=== PATIENT | male | born 1955 | race Caucasian/White ===

== ENCOUNTER → 2018-01-13 13:03 | Outpatient (CLI) | payer OTHER, SELFPAY ==
[2018-01-13 13:41] LABS: Add Manual Diff / Slide Review NO; Basophils Percent Auto 0.5 % (0-2); Hematocrit 40.9 % (41-53); Hemoglobin 14.3 g/dL (13.5-17.5); Lymphocytes Percent Auto 33.2 % (25-40); Mean Corpuscular Hemoglobin 30.2 PG (26-34); Mean Corpuscular Volume 86.5 fL (80-100); Monocytes Percent Auto 5.7 % (3-14); Neutrophils Absolute Auto 4300 /uL (3000-5900); Neutrophils Percent Auto 59.6 % (50-75); Platelet Count 178 X10^3/uL (150-400); Red Blood Cell Count 4.73 X10^6/uL (4.5-5.9); Red Cell Distribution Width 12.7 % (11.6-14.8); White Blood Cell Count 7.2 X10^3/uL (4.5-11.0)
[2018-01-13 13:42] LABS: INR 1.2 (0.9-1.3); Prothrombin Time 12.7 SECONDS (10.1-12.7)
[2018-01-13 14:00] LABS: Alanine Aminotransferase 22 IU/L (21-72); Albumin 3.7 g/dL (3.5-5.0); Albumin Globulin Ratio 1.2 (1.0-2.8); Alkaline Phosphatase 73 U/L (38-126); Aspartate Aminotransferase 18 IU/L (17-59); BUN Creatinine Ratio 24.5 (6-22); Bilirubin Total 0.4 mg/dL (0.2-1.3); Blood Urea Nitrogen 27 mg/dL (9-20); Calcium 8.8 mg/dL (8.4-10.2); Carbon Dioxide 25 mmol/L (22-32); Chloride 105 mmol/L (98-107); Estimated Glomerular Filt Rate > 60.0 mL/min (>60); Globulin 3.2 g/dL (1.7-4.1); Glucose 171 mg/dL (80-110); HEMOLYSIS < 15 (0-50); Sodium 141 mmol/L (137-145); Total Protein 6.9 g/dL (6.3-8.2)
[2018-01-13 14:47] LABS: TSH w/ Reflex to FT4 2.46 uIU/mL (0.47-4.68)
[2018-01-15 15:21] LABS: Alpha Fetoprotein 4.5 ng/mL (< 6.1)
== END ==
PROVIDERS: PCP Family Medicine; Visit Provider Internal Medicine Gastroenterology
DX: R80.9 Proteinuria, unspecified (principal); R10.9 Unspecified abdominal pain; I10 Essential (primary) hypertension; K31.84 Gastroparesis
CPT/HCPCS: 36415; 80053; 82105; 84443; 85025; 85610; 87522; 87902

== ENCOUNTER → 2018-04-21 08:02 | Outpatient (CLI) | payer OTHER, SELFPAY ==
[2018-04-21 09:06] LABS: Add Manual Diff / Slide Review NO; Basophils Percent Auto 0.3 % (0-2); Eosinophils Percent Auto 0.9 % (2-4); Hematocrit 42.1 % (41-53); Hemoglobin 14.7 g/dL (13.5-17.5); Lymphocytes Percent Auto 25.1 % (25-40); Mean Corpuscular HGB Conc 34.9 % (30-36); Mean Corpuscular Hemoglobin 30.1 PG (26-34); Mean Corpuscular Volume 86.1 fL (80-100); Monocytes Percent Auto 9.3 % (3-14); Neutrophils Absolute Auto 4100 /uL (3000-5900); Neutrophils Percent Auto 64.4 % (50-75); Platelet Count 145 X10^3/uL (150-400); Red Blood Cell Count 4.89 X10^6/uL (4.5-5.9); Red Cell Distribution Width 12.7 % (11.6-14.8); White Blood Cell Count 6.4 X10^3/uL (4.5-11.0)
[2018-04-21 09:20] LABS: Hemoglobin A1C% w Est Avg Glu 5.9 % (4.0-6.0)
[2018-04-21 09:21] LABS: Alanine Aminotransferase 21 IU/L (21-72); Albumin 4.1 g/dL (3.5-5.0); Albumin Globulin Ratio 1.4 (1.0-2.8); Alkaline Phosphatase 68 U/L (38-126); Aspartate Aminotransferase 22 IU/L (17-59); Bilirubin Total 0.6 mg/dL (0.2-1.3); Blood Urea Nitrogen 22 mg/dL (9-20); Calcium 9.1 mg/dL (8.4-10.2); Carbon Dioxide 29 mmol/L (22-32); Chloride 103 mmol/L (98-107); Cholesterol 185 mg/dL (140-199); Estimated Glomerular Filt Rate > 60.0 mL/min (>60); Globulin 2.9 g/dL (1.7-4.1); Glucose 132 mg/dL (80-110); HDL Cholesterol 29 mg/dL (40-60); HEMOLYSIS < 15 (0-50); LDL Cholesterol Calculated 109 mg/dL (<100); Potassium 4.2 mmol/L (3.4-5.1); Sodium 143 mmol/L (137-145); Triglycerides 234 mg/dL (35-150)
[2018-04-21 09:46] LABS: Prostate Specific Antigen 0.499 ng/mL (0.10-4.00)
[2018-04-21 09:58] LABS: Thyroid Stimulating Hormone 3.08 uIU/mL (0.47-4.68)
== END ==
PROVIDERS: PCP Family Medicine; Visit Provider Family Medicine
DX: I10 Essential (primary) hypertension (principal); K73.9 Chronic hepatitis, unspecified; R73.9 Hyperglycemia, unspecified
CPT/HCPCS: 36415; 80053; 80061; 83036; 84153; 84443; 85025

== ENCOUNTER → 2018-06-06 06:58 | Outpatient (CLI) | payer OTHER, SELFPAY ==
--- NOTE | 2018-06-06 07:19 | DI.CT.S_ITS ---
PROCEDURE: CT CHEST WO CON INDICATIONS: F/U Pulmonary Nodules TECHNIQUE: Noncontrast 2.0-2.5 mm thick sections acquired from the pulmonary apices to the posterior costophrenic angles. 7 mm thick coronal and sagittal MIP reformats were then acquired. A low radiation dose technique was utilized. COMPARISON: [facility], CT, THORAX WITHOUT CONTRAST, 05/11/2016, 13:58. Also, prior amount [facility] CT of thorax/abdomen 11/26/15 is referenced. FINDINGS: Image quality: Diagnostic, given the low radiation dose technique. Lungs and pleura: Scattered small pulmonary nodules are present as was previously the case, consistent with old granulomatous disease and without international exchange coordinator time. Given their presence from 11/15 benign etiology is presumed. Mediastinum: Heart size is normal. No pericardial effusion. No mediastinal adenopathy by size criteria. Thoracic aorta and central pulmonary arteries are normal in size. Esophagus is normal in caliber. No hiatal hernia. Bones and chest wall: No suspicious bony lesions. No vertebral body compression fractures. No axillary or supraclavicular adenopathy by size criteria. Thyroid gland appears normal where well seen. As was previously the case the most prominent nodule is at the posterior medial right lung base measuring up to 7 mm. Abdomen: Visualized upper abdomen solid organs and bowel loops appear stable over time in the absence of contrast, with a stable right posterior hepatic segment ovoid 7 by 8mm calcification presumably granulomatous in origin in this clinical circumstance.. IMPRESSION: Stable appearance of the scattered small benign-appearing pulmonary nodules without change from November 2015 and presumably granulomatous in origin. No active granulomatous disease is found, no followup recommended. Dictated by: Gavin Swan M.D. on 06/06/2018 at 9:50 Approved by: Gavin Swan M.D. on 06/06/2018 at 9:55
== END ==
PROVIDERS: Family Provider Family Medicine; PCP Family Medicine; Visit Provider Family Medicine
DX: R91.8 Other nonspecific abnormal finding of lung field (principal)
CPT/HCPCS: 71250

== ENCOUNTER → 2019-06-01 07:22 | Outpatient (CLI) | payer OTHER, SELFPAY ==
[2019-06-01 08:42] LABS: Add Manual Diff / Slide Review NO; Basophils Absolute Auto 0 /uL (0-100); Basophils Percent Auto 0.3 % (0-2); Eosinophils Absolute Auto 100 /uL (0-450); Eosinophils Percent Auto 1.5 % (2-4); Hematocrit 40.6 % (41-53); Hemoglobin 14.4 g/dL (13.5-17.5); Lymphocytes Absolute Auto 2000 /uL (1100-4500); Lymphocytes Percent Auto 30.3 % (25-40); Mean Corpuscular HGB Conc 35.4 % (30-36); Mean Corpuscular Hemoglobin 30.6 PG (26-34); Mean Corpuscular Volume 86.3 fL (80-100); Monocytes Absolute Auto 500 /uL (0-900); Monocytes Percent Auto 7.6 % (3-14); Neutrophils Absolute Auto 3900 /uL (1500-7000); Neutrophils Percent Auto 60.3 % (50-75); Platelet Count 186 X10^3/uL (150-400); Red Blood Cell Count 4.71 X10^6/uL (4.5-5.9); White Blood Cell Count 6.4 X10^3/uL (4.5-11.0)
[2019-06-01 09:24] LABS: Alanine Aminotransferase 26 IU/L (21-72); Albumin 3.7 g/dL (3.5-5.0); Albumin Globulin Ratio 1.4 (1.0-2.8); Alkaline Phosphatase 80 U/L (38-126); Aspartate Aminotransferase 23 IU/L (17-59); BUN Creatinine Ratio 16.9 (6-22); Bilirubin Total 0.6 mg/dL (0.2-1.3); Blood Urea Nitrogen 22 mg/dL (9-20); Calcium 9.3 mg/dL (8.4-10.2); Carbon Dioxide 29 mmol/L (22-32); Chloride 102 mmol/L (98-107); Cholesterol 208 mg/dL (140-199); Estimated Glomerular Filt Rate 56.1 mL/min (>60); Globulin 2.6 g/dL (1.7-4.1); Glucose 149 mg/dL (80-110); HDL Cholesterol 32 mg/dL (40-60); HEMOLYSIS < 15 (0-50); LDL Cholesterol Calculated 134 mg/dL (<100); Potassium 4.6 mmol/L (3.4-5.1); Sodium 138 mmol/L (137-145); Total Protein 6.3 g/dL (6.3-8.2); Triglycerides 208 mg/dL (35-150)
[2019-06-01 09:53] LABS: Prostate Specific Antigen Scrn 0.583 ng/mL (0.1-4.0)
== END ==
PROVIDERS: Family Provider Family Medicine; PCP Family Medicine; Visit Provider Nurse Practitioner
DX: Z12.5 Encounter for screening for malignant neoplasm of prostate (principal); K31.84 Gastroparesis; R73.9 Hyperglycemia, unspecified; Z13.220 Encounter for screening for lipoid disorders
CPT/HCPCS: 36415; 80053; 80061; 83036; 85025; G0103

== ENCOUNTER → 2019-07-13 11:19 | Outpatient (CLI) | payer OTHER, SELFPAY ==
--- NOTE | 2019-07-13 11:20 | DI.RAD.S_ITS ---
PROCEDURE: XR HIP W PEL IF DONE RT 2V INDICATIONS: right hip pain TECHNIQUE: AP pelvis with lateral view(s) of the right hip(s). COMPARISON: None. FINDINGS: Bones: No fractures or dislocations. Pelvic ring appears intact. No suspicious bony lesions. Soft tissues: The visualized bowel gas pattern is normal. No suspicious soft tissue calcifications. IMPRESSION: No fracture or dislocation. If clinical symptoms persist or clinical suspicion for pathology is high, advanced imaging such as CT or MRI is suggested for further evaluation. Dictated by: Haider Gutierrez M.D. on 07/13/2019 at 17:59 Approved by: Haider Gutierrez M.D. on 07/13/2019 at 18:01
== END ==
PROVIDERS: Family Provider Family Medicine; PCP Family Medicine; Visit Provider Family Medicine
DX: M25.551 Pain in right hip (principal); I10 Essential (primary) hypertension
CPT/HCPCS: 73502

== ENCOUNTER → 2019-10-13 07:32 | Outpatient (CLI) | payer OTHER, SELFPAY ==
[2019-10-13 08:22] LABS: Hemoglobin A1C% w Est Avg Glu 6.1 % (4.0-6.0)
[2019-10-13 08:29] LABS: Glucose 161 mg/dL (80-110)
[2019-10-13 08:32] LABS: Blood Urea Nitrogen 33 mg/dL (9-20); Calcium 9.7 mg/dL (8.4-10.2); Carbon Dioxide 28 mmol/L (22-32); Chloride 103 mmol/L (98-107); Estimated Glomerular Filt Rate > 60.0 mL/min (>60); Glucose 160 mg/dL (80-110); HEMOLYSIS < 15 (0-50); Sodium 136 mmol/L (137-145)
== END ==
PROVIDERS: Nurse Practitioner; Family Provider Family Medicine; PCP Family Medicine; Referring Provider Family Medicine; Visit Provider Family Medicine
DX: R73.9 Hyperglycemia, unspecified (principal); I10 Essential (primary) hypertension
CPT/HCPCS: 36415; 80048; 82947; 83036

== ENCOUNTER → 2020-03-12 11:18 | Outpatient (CLI) | payer OTHER, SELFPAY ==
[2020-03-12 13:29] LABS: BUN Creatinine Ratio 23.9 (6-22); Blood Urea Nitrogen 32 mg/dL (9-20); Carbon Dioxide 26 mmol/L (22-32); Chloride 103 mmol/L (98-107); Glucose 113 mg/dL (80-110); HEMOLYSIS < 15 (0-50); Sodium 136 mmol/L (137-145)
[2020-03-12 13:34] LABS: Potassium 5.5 mmol/L (3.4-5.1)
== END ==
PROVIDERS: Family Provider Family Medicine; PCP Family Medicine; Referring Provider Family Medicine; Visit Provider Family Medicine
DX: R73.9 Hyperglycemia, unspecified (principal)
CPT/HCPCS: 36415; 80048; 83036

== ENCOUNTER → 2020-04-23 13:51 | Outpatient (CLI) | payer OTHER, SELFPAY ==
[2020-04-23 15:06] LABS: Add Manual Diff / Slide Review NO; Basophils Absolute Auto 0 /uL (0-100); Basophils Percent Auto 0.4 % (0-2); Eosinophils Absolute Auto 100 /uL (0-450); Eosinophils Percent Auto 1.2 % (2-4); Hematocrit 37.7 % (41-53); Hemoglobin 13.1 g/dL (13.5-17.5); Lymphocytes Absolute Auto 2400 /uL (1100-4500); Lymphocytes Percent Auto 34.8 % (25-40); Mean Corpuscular HGB Conc 34.7 % (30-36); Mean Corpuscular Hemoglobin 30.3 PG (26-34); Mean Corpuscular Volume 87.3 fL (80-100); Monocytes Absolute Auto 500 /uL (0-900); Neutrophils Absolute Auto 3800 /uL (1500-7000); Neutrophils Percent Auto 55.6 % (50-75); Platelet Count 149 X10^3/uL (150-400); Red Blood Cell Count 4.31 X10^6/uL (4.5-5.9); Red Cell Distribution Width 12.7 % (11.6-14.8); White Blood Cell Count 6.8 X10^3/uL (4.5-11.0)
[2020-04-23 15:23] LABS: INR 1.1 (0.9-1.3)
[2020-04-23 15:38] LABS: Alanine Aminotransferase 16 IU/L (<50); Albumin 3.8 g/dL (3.5-5.0); Albumin Globulin Ratio 1.3 (1.0-2.8); Alkaline Phosphatase 65 U/L (38-126); Aspartate Aminotransferase 20 IU/L (17-59); BUN Creatinine Ratio 20.9 (6-22); Bilirubin Total 0.3 mg/dL (0.2-1.3); Blood Urea Nitrogen 27 mg/dL (9-20); Calcium 8.8 mg/dL (8.4-10.2); Carbon Dioxide 26 mmol/L (22-32); Chloride 106 mmol/L (98-107); Estimated Glomerular Filt Rate 56.4 mL/min (>60); Globulin 2.9 g/dL (1.7-4.1); Glucose 129 mg/dL (80-110); HEMOLYSIS < 15 (0-50); Potassium 4.1 mmol/L (3.4-5.1); Sodium 139 mmol/L (137-145); Total Protein 6.7 g/dL (6.3-8.2)
== END ==
PROVIDERS: Family Provider Family Medicine; PCP Family Medicine; Referring Provider Internal Medicine Gastroenterology; Visit Provider Internal Medicine Gastroenterology
DX: B18.2 Chronic viral hepatitis C (principal); K58.9 Irritable bowel syndrome, unspecified; K31.84 Gastroparesis
CPT/HCPCS: 36415; 80053; 85025; 85610

== ENCOUNTER → 2020-09-25 07:46 | Outpatient (CLI) | payer OTHER, SELFPAY ==
[2020-09-25 09:43] LABS: Add Manual Diff / Slide Review NO; Basophils Absolute Auto 0 /uL (0-100); Basophils Percent Auto 0.4 % (0-2); Eosinophils Absolute Auto 100 /uL (0-450); Eosinophils Percent Auto 1.2 % (2-4); Hematocrit 39.4 % (41-53); Hemoglobin 13.6 g/dL (13.5-17.5); Lymphocytes Absolute Auto 1600 /uL (1100-4500); Lymphocytes Percent Auto 24.2 % (25-40); Mean Corpuscular HGB Conc 34.4 % (30-36); Mean Corpuscular Hemoglobin 29.5 PG (26-34); Mean Corpuscular Volume 85.7 fL (80-100); Monocytes Absolute Auto 600 /uL (0-900); Monocytes Percent Auto 8.7 % (3-14); Neutrophils Absolute Auto 4300 /uL (1500-7000); Neutrophils Percent Auto 65.5 % (50-75); Platelet Count 153 X10^3/uL (150-400); Red Cell Distribution Width 13.3 % (11.6-14.8); White Blood Cell Count 6.6 X10^3/uL (4.5-11.0)
[2020-09-25 09:54] LABS: Hemoglobin A1C% w Est Avg Glu 6.7 % (4.0-6.0)
[2020-09-25 09:57] LABS: INR 1.1 (0.9-1.3); Prothrombin Time 12.9 SECONDS (10.1-12.7)
[2020-09-25 10:10] LABS: Alanine Aminotransferase 21 IU/L (<50); Albumin 3.8 g/dL (3.5-5.0); Albumin Globulin Ratio 1.3 (1.0-2.8); Alkaline Phosphatase 75 U/L (38-126); Aspartate Aminotransferase 23 IU/L (17-59); BUN Creatinine Ratio 20.8 (6-22); Bilirubin Total 0.4 mg/dL (0.2-1.3); Blood Urea Nitrogen 27 mg/dL (9-20); Calcium 9.2 mg/dL (8.4-10.2); Carbon Dioxide 29 mmol/L (22-32); Chloride 104 mmol/L (98-107); Cholesterol 222 mg/dL (140-199); Estimated Glomerular Filt Rate 55.8 mL/min (>60); Glucose 157 mg/dL (80-110); HDL Cholesterol 28 mg/dL (40-60); HEMOLYSIS < 15 (0-50); LDL Cholesterol Calculated 147 mg/dL (<100); Potassium 4.4 mmol/L (3.4-5.1); Sodium 136 mmol/L (137-145); Total Protein 6.8 g/dL (6.3-8.2); Triglycerides 234 mg/dL (35-150)
[2020-09-25 10:39] LABS: Prostate Specific Antigen Scrn 0.467 ng/mL (0.1-4.0)
== END ==
PROVIDERS: Family Provider Family Medicine; PCP Internal Medicine; Referring Provider Internal Medicine; Visit Provider Internal Medicine Gastroenterology
DX: B18.2 Chronic viral hepatitis C (principal); E78.2 Mixed hyperlipidemia; I10 Essential (primary) hypertension; Z12.5 Encounter for screening for malignant neoplasm of prostate
CPT/HCPCS: 36415; 80053; 80061; 83036; 85025; 85610; G0103

== ENCOUNTER → 2021-03-14 08:53 | Outpatient (CLI) | payer OTHER, SELFPAY ==
[2021-03-14 10:26] LABS: Hemoglobin A1C% w Est Avg Glu 5.9 % (4.0-6.0)
[2021-03-14 10:49] LABS: Alanine Aminotransferase 16 IU/L (<50); Albumin 3.8 g/dL (3.5-5.0); Albumin Globulin Ratio 1.2 (1.0-2.8); Alkaline Phosphatase 68 U/L (38-126); Aspartate Aminotransferase 26 IU/L (17-59); BUN Creatinine Ratio 19.4 (6-22); Bilirubin Total 0.4 mg/dL (0.2-1.3); Blood Urea Nitrogen 41 mg/dL (9-20); Calcium 9.6 mg/dL (8.4-10.2); Carbon Dioxide 23 mmol/L (22-32); Chloride 107 mmol/L (98-107); Cholesterol 186 mg/dL (140-199); Estimated Glomerular Filt Rate 31.9 mL/min (>60); Globulin 3.1 g/dL (1.7-4.1); Glucose 142 mg/dL (80-110); HDL Cholesterol 27 mg/dL (40-60); HEMOLYSIS < 15 (0-50); LDL Cholesterol Calculated 119 mg/dL (<100); Potassium 4.9 mmol/L (3.4-5.1); Sodium 136 mmol/L (137-145); Total Protein 6.9 g/dL (6.3-8.2); Triglycerides 199 mg/dL (35-150)
== END ==
PROVIDERS: Family Provider Family Medicine; PCP Internal Medicine; Referring Provider Internal Medicine; Visit Provider Internal Medicine
DX: B18.2 Chronic viral hepatitis C (principal); I10 Essential (primary) hypertension; N18.31 Chronic kidney disease, stage 3a; E78.2 Mixed hyperlipidemia; E11.65 Type 2 diabetes mellitus with hyperglycemia
CPT/HCPCS: 36415; 80053; 80061; 83036

== ENCOUNTER → 2022-03-30 12:56 | Outpatient (CLI) | payer OTHER, SELFPAY ==
[2022-03-30 13:31] LABS: INR 1.2 (0.9-1.3); Prothrombin Time 13.3 SECONDS (10.1-12.7)
[2022-03-30 13:48] LABS: Add Manual Diff / Slide Review NO; Basophils Absolute Auto 0 /uL (0-100); Basophils Percent Auto 0.4 % (0-2); Eosinophils Absolute Auto 100 /uL (0-450); Eosinophils Percent Auto 1.3 % (2-4); Hematocrit 39.6 % (41-53); Hemoglobin 13.8 g/dL (13.5-17.5); Lymphocytes Absolute Auto 2100 /uL (1100-4500); Lymphocytes Percent Auto 30.8 % (25-40); Mean Corpuscular Hemoglobin 29.8 PG (26-34); Mean Corpuscular Volume 85.2 fL (80-100); Monocytes Absolute Auto 500 /uL (0-900); Monocytes Percent Auto 7.4 % (3-14); Neutrophils Absolute Auto 4000 /uL (1500-7000); Neutrophils Percent Auto 60.1 % (50-75); Platelet Count 167 X10^3/uL (150-400); Red Blood Cell Count 4.65 X10^6/uL (4.5-5.9); Red Cell Distribution Width 13.4 % (11.6-14.8); White Blood Cell Count 6.7 X10^3/uL (4.5-11.0)
[2022-03-30 14:17] LABS: Alanine Aminotransferase 16 IU/L (<50); Albumin 3.6 g/dL (3.5-5.0); Albumin Globulin Ratio 1.2 (1.0-2.8); Alkaline Phosphatase 79 U/L (38-126); Aspartate Aminotransferase 20 IU/L (17-59); BUN Creatinine Ratio 17.7 (6-22); Bilirubin Total 0.3 mg/dL (0.2-1.3); Blood Urea Nitrogen 29 mg/dL (9-20); Calcium 8.6 mg/dL (8.4-10.2); Carbon Dioxide 22 mmol/L (22-32); Chloride 109 mmol/L (98-107); Estimated Glomerular Filt Rate 46 mL/min (>60); Glucose 129 mg/dL (80-110); HEMOLYSIS < 15 (0-50); Potassium 4.5 mmol/L (3.4-5.1); Sodium 137 mmol/L (137-145); Total Protein 6.6 g/dL (6.3-8.2)
== END ==
PROVIDERS: Family Provider Family Medicine; PCP Internal Medicine; Referring Provider Internal Medicine Gastroenterology; Visit Provider Internal Medicine Gastroenterology
DX: B18.2 Chronic viral hepatitis C (principal); K58.9 Irritable bowel syndrome, unspecified; K31.84 Gastroparesis
CPT/HCPCS: 36415; 80053; 85025; 85610

== ENCOUNTER → 2022-06-04 16:55 | Outpatient (CLI) | payer OTHER, SELFPAY ==
[2022-06-04 18:16] LABS: Hemoglobin A1C% w Est Avg Glu 6.1 % (4.0-6.0)
[2022-06-04 18:34] LABS: BUN Creatinine Ratio 19.3 (6-22); Blood Urea Nitrogen 31 mg/dL (9-20); Calcium 8.7 mg/dL (8.4-10.2); Carbon Dioxide 22 mmol/L (22-32); Chloride 105 mmol/L (98-107); Estimated Glomerular Filt Rate 47 mL/min (>60); Glucose 120 mg/dL (80-110); HEMOLYSIS < 15 (0-50); Potassium 4.2 mmol/L (3.4-5.1); Sodium 136 mmol/L (137-145)
== END ==
PROVIDERS: Family Provider Family Medicine; PCP Internal Medicine; Referring Provider Internal Medicine; Visit Provider Internal Medicine
DX: E11.9 Type 2 diabetes mellitus without complications (principal); I10 Essential (primary) hypertension; N18.31 Chronic kidney disease, stage 3a
CPT/HCPCS: 36415; 80048; 83036

== ENCOUNTER → 2022-12-07 08:15 | Outpatient (CLI) | payer MEDICARE, OTHER, SELFPAY ==
[2022-12-07 09:51] LABS: Alanine Aminotransferase 18 IU/L (<50); Albumin 3.7 g/dL (3.5-5.0); Albumin Globulin Ratio 1.2 (1.0-2.8); Alkaline Phosphatase 78 U/L (38-126); Aspartate Aminotransferase 21 IU/L (17-59); BUN Creatinine Ratio 17.3 (6-22); Bilirubin Total 0.5 mg/dL (0.2-1.3); Blood Urea Nitrogen 36 mg/dL (9-20); Carbon Dioxide 24 mmol/L (22-32); Chloride 103 mmol/L (98-107); Cholesterol 234 mg/dL (140-199); Estimated Glomerular Filt Rate 35 mL/min (>60); Glucose 132 mg/dL (80-110); HDL Cholesterol 35 mg/dL (40-60); HEMOLYSIS < 15 (0-50); LDL Cholesterol Calculated 159 mg/dL (<100); Sodium 135 mmol/L (137-145); Total Protein 6.7 g/dL (6.3-8.2); Triglycerides 198 mg/dL (35-150)
[2022-12-07 09:54] LABS: Potassium 5.5 mmol/L (3.4-5.1)
[2022-12-08 07:08] LABS: x Labcorp Estim. Avg Glu (eAG) 140 mg/dL (.); x Labcorp Hemoglobin A1c 6.5 % (4.8-5.6)
== END ==
PROVIDERS: Family Provider Family Medicine; PCP Internal Medicine; Referring Provider Internal Medicine; Visit Provider Internal Medicine
DX: E11.9 Type 2 diabetes mellitus without complications (principal); E78.2 Mixed hyperlipidemia; I10 Essential (primary) hypertension; N18.31 Chronic kidney disease, stage 3a
CPT/HCPCS: 36415; 80053; 80061; 83036

== ENCOUNTER → 2023-06-11 10:37 | Outpatient (CLI) | payer MEDICARE, SELFPAY ==
[2023-06-11 11:26] LABS: Hemoglobin A1C% w Est Avg Glu 7.1 % (4.0-6.0)
== END ==
PROVIDERS: Family Provider Family Medicine; PCP Internal Medicine; Referring Provider Internal Medicine; Visit Provider Internal Medicine
DX: E11.9 Type 2 diabetes mellitus without complications (principal); N18.31 Chronic kidney disease, stage 3a; I10 Essential (primary) hypertension; E78.2 Mixed hyperlipidemia
CPT/HCPCS: 36415; 83036

== ENCOUNTER → 2023-07-08 11:41 | Outpatient (CLI) | payer MEDICARE, OTHER, SELFPAY ==
--- NOTE | 2023-07-08 11:44 | DI.RAD.S_ITS ---
PROCEDURE: XR ACUTE ABDOMEN SERIES INDICATIONS: abdomen pain TECHNIQUE: One view chest and two views of the abdomen were acquired. COMPARISON: None. FINDINGS: Surgical changes and devices: None. Chest: Lungs are clear. Heart size is normal. No pleural effusions. No pneumoperitoneum. Abdomen: Bowel gas pattern is normal. No suspicious calcifications. Visualized solid organ contours appear normal. Atherosclerotic vascular calcification. Moderate fecal debris in the right colon Bones: No suspicious bony lesions. IMPRESSION: No acute abnormality. Approved by: Alexis Thomson M.D. on 07/08/2023 at 19:27
[2023-07-08 12:35] LABS: Add Manual Diff / Slide Review NO; Basophils Absolute Auto 0 /uL (0-100); Basophils Percent Auto 0.4 % (0-2); Eosinophils Absolute Auto 200 /uL (0-450); Eosinophils Percent Auto 2.2 % (2-4); Hematocrit 36.6 % (41-53); Hemoglobin 12.6 g/dL (13.5-17.5); Lymphocytes Absolute Auto 2000 /uL (1100-4500); Lymphocytes Percent Auto 27.8 % (25-40); Mean Corpuscular HGB Conc 34.5 % (30-36); Mean Corpuscular Hemoglobin 28.9 PG (26-34); Mean Corpuscular Volume 83.9 fL (80-100); Monocytes Absolute Auto 600 /uL (0-900); Monocytes Percent Auto 8.3 % (3-14); Neutrophils Absolute Auto 4300 /uL (1500-7000); Neutrophils Percent Auto 61.3 % (50-75); Platelet Count 153 X10^3/uL (150-400); Red Blood Cell Count 4.36 X10^6/uL (4.5-5.9); Red Cell Distribution Width 12.9 % (11.6-14.8); White Blood Cell Count 7.1 X10^3/uL (4.5-11.0)
[2023-07-08 12:45] LABS: Hemoglobin A1C% w Est Avg Glu 7.3 % (4.0-6.0)
[2023-07-08 13:01] LABS: Erythrocyte Sedimentation Rate 48 MM/HR (0-15)
[2023-07-08 13:08] LABS: Alanine Aminotransferase 19 IU/L (<50); Albumin 4.1 g/dL (3.5-5.0); Albumin Globulin Ratio 1.4 (1.0-2.8); Alkaline Phosphatase 64 U/L (38-126); Aspartate Aminotransferase 23 IU/L (17-59); BUN Creatinine Ratio 32.5 (6-22); Bilirubin Total 0.5 mg/dL (0.2-1.3); C-Reactive Protein Quant 0.6 mg/dL (<1.0); Calcium 9.7 mg/dL (8.4-10.2); Carbon Dioxide 25 mmol/L (22-32); Chloride 98 mmol/L (98-107); Estimated Glomerular Filt Rate 20 mL/min (>60); Glucose 132 mg/dL (80-110); HEMOLYSIS < 15 (0-50); Lipase 182 U/L (23-300); Potassium 4.6 mmol/L (3.4-5.1); Sodium 134 mmol/L (137-145); Total Protein 7.1 g/dL (6.3-8.2)
[2023-07-08 13:17] LABS: Blood Urea Nitrogen 106 mg/dL (9-20)
[2023-07-08 13:34] LABS: TSH w/ Reflex to FT4 2.65 uIU/mL (0.47-4.68)
== END ==
PROVIDERS: Family Provider Family Medicine; PCP Internal Medicine; Referring Provider Internal Medicine; Visit Provider Internal Medicine
DX: R10.9 Unspecified abdominal pain (principal); E11.9 Type 2 diabetes mellitus without complications; I10 Essential (primary) hypertension; E78.2 Mixed hyperlipidemia; R11.0 Nausea; R63.4 Abnormal weight loss
CPT/HCPCS: 36415; 74022; 80053; 83036; 83690; 84443; 85025; 85651; 86140

== ENCOUNTER → 2023-09-07 14:07 | Outpatient (CLI) | payer MEDICARE, OTHER, SELFPAY ==
[2023-09-07 15:32] LABS: Albumin 3.9 g/dL (3.5-5.0); BUN Creatinine Ratio 27.9 (6-22); Blood Urea Nitrogen 64 mg/dL (9-20); Calcium 9.4 mg/dL (8.4-10.2); Carbon Dioxide 27 mmol/L (22-32); Chloride 99 mmol/L (98-107); Estimated Glomerular Filt Rate 31 mL/min (>60); Glucose 127 mg/dL (80-110); HEMOLYSIS < 15 (0-50); Phosphorous 4.4 mg/dL (2.3-3.7); Potassium 4.2 mmol/L (3.4-5.1); Sodium 136 mmol/L (137-145)
== END ==
PROVIDERS: Family Provider Family Medicine; PCP Internal Medicine; Referring Provider Internal Medicine; Visit Provider Internal Medicine
DX: N18.4 Chronic kidney disease, stage 4 (severe) (principal)
CPT/HCPCS: 36415; 80069

== ENCOUNTER → 2023-09-23 16:48 | Outpatient (CLI) | payer MEDICARE, OTHER, SELFPAY ==
--- NOTE | 2023-09-23 16:49 | DI.RAD.S_ITS ---
PROCEDURE: XR KNEE LT 3V INDICATIONS: knee pain TECHNIQUE: 3 views of the knee were acquired. COMPARISON: None. FINDINGS: Bones: Mild degenerative changes, particularly the medial compartment. An exostosis is seen at the lateral distal femoral shaft. Indeterminate cortical thickening is also seen in the proximal fibula, mild. Soft tissues: Small joint effusion.. Vascular calcifications. IMPRESSION: Mild degenerative changes. Suspected osteochondroma arising from the distal femoral shaft. There is also mild indeterminate cortical thickening of the proximal fibula, possibly from prior injury. Small joint effusion. If there is high concern for further derangement, consider MRI evaluation. Dictated by: Cuong Iglesias M.D. on 09/24/2023 at 13:16 Approved by: Cuong Iglesias M.D. on 09/24/2023 at 13:19
[2023-09-23 17:44] LABS: Alanine Aminotransferase 14 IU/L (<50); Albumin 3.6 g/dL (3.5-5.0); Albumin Globulin Ratio 1.2 (1.0-2.8); Alkaline Phosphatase 71 U/L (38-126); Aspartate Aminotransferase 17 IU/L (17-59); BUN Creatinine Ratio 18.8 (6-22); Bilirubin Total 0.5 mg/dL (0.2-1.3); Blood Urea Nitrogen 42 mg/dL (9-20); C-Reactive Protein Quant 2.6 mg/dL (<1.0); Calcium 8.7 mg/dL (8.4-10.2); Carbon Dioxide 26 mmol/L (22-32); Chloride 103 mmol/L (98-107); Estimated Glomerular Filt Rate 32 mL/min (>60); Globulin 3.1 g/dL (1.7-4.1); Glucose 162 mg/dL (80-110); HEMOLYSIS < 15 (0-50); Potassium 4.2 mmol/L (3.4-5.1); Sodium 137 mmol/L (137-145); Total Protein 6.7 g/dL (6.3-8.2); Uric Acid 9.9 mg/dL (3.5-8.5)
[2023-09-23 21:28] LABS: Erythrocyte Sedimentation Rate 47 MM/HR (0-15)
== END ==
PROVIDERS: Family Provider Family Medicine; PCP Internal Medicine; Referring Provider Internal Medicine; Visit Provider Internal Medicine
DX: M25.462 Effusion, left knee (principal); M25.569 Pain in unspecified knee; N18.4 Chronic kidney disease, stage 4 (severe); I10 Essential (primary) hypertension; E78.2 Mixed hyperlipidemia
CPT/HCPCS: 36415; 73562; 80053; 84550; 85651; 86140

== ENCOUNTER → 2023-12-29 14:19 | Outpatient (CLI) | payer MEDICARE, OTHER, SELFPAY ==
[2023-12-29 15:18] LABS: Add Manual Diff / Slide Review NO; Basophils Absolute Auto 0 /uL (0-100); Basophils Percent Auto 0.4 % (0-2); Eosinophils Absolute Auto 100 /uL (0-450); Eosinophils Percent Auto 1.1 % (2-4); Lymphocytes Absolute Auto 2000 /uL (1100-4500); Lymphocytes Percent Auto 25.6 % (25-40); Mean Corpuscular HGB Conc 34.3 % (30-36); Mean Corpuscular Hemoglobin 28.7 PG (26-34); Mean Corpuscular Volume 83.5 fL (80-100); Monocytes Absolute Auto 500 /uL (0-900); Monocytes Percent Auto 6.6 % (3-14); Neutrophils Absolute Auto 5200 /uL (1500-7000); Neutrophils Percent Auto 66.3 % (50-75); Platelet Count 184 X10^3/uL (150-400); Red Blood Cell Count 4.55 X10^6/uL (4.5-5.9); White Blood Cell Count 7.8 X10^3/uL (4.5-11.0)
[2023-12-29 15:40] LABS: Hemoglobin A1C% w Est Avg Glu 6.9 % (4.0-6.0)
[2023-12-29 16:03] LABS: Iron 81 ug/dL (49-181)
[2023-12-29 16:13] LABS: Albumin 4.2 g/dL (3.5-5.0); BUN Creatinine Ratio 25.7 (6-22); Blood Urea Nitrogen 75 mg/dL (9-20); Calcium 8.8 mg/dL (8.4-10.2); Carbon Dioxide 28 mmol/L (22-32); Chloride 99 mmol/L (98-107); Estimated Glomerular Filt Rate 23 mL/min (>60); Glucose 212 mg/dL (80-110); HEMOLYSIS < 15 (0-50); Phosphorous 4.5 mg/dL (2.3-3.7); Sodium 135 mmol/L (137-145); Uric Acid 10.4 mg/dL (3.5-8.5)
[2023-12-29 16:15] LABS: Total Iron Binding Capacity 265 ug/dL (261-462)
[2023-12-29 16:42] LABS: Ferritin 127 ng/mL (18-464)
[2023-12-29 16:45] LABS: Vitamin D 25 Hydroxy (D3) 24.2 ng/mL (30.0-100.0)
[2023-12-31 07:44] LABS: Parathyroid Hormone Int 85 pg/mL (15-65)
[2024-01-04 18:57] LABS: 25 hydroxy Vitamin D 2 <1.0 ng/mL (.); 25 hydroxy Vitamin D3 18 ng/mL (.)
== END ==
PROVIDERS: Family Provider Family Medicine; PCP Internal Medicine; Referring Provider Internal Medicine; Visit Provider Internal Medicine
DX: M10.9 Gout, unspecified (principal); E11.9 Type 2 diabetes mellitus without complications; D63.1 Anemia in chronic kidney disease; N18.4 Chronic kidney disease, stage 4 (severe); N28.9 Disorder of kidney and ureter, unspecified
CPT/HCPCS: 36415; 80069; 82306; 82728; 83036; 83540; 83550; 83970; 84550; 85025

== ENCOUNTER → 2024-01-12 06:36 | Outpatient (CLI) | payer MEDICARE, OTHER, SELFPAY ==
[2024-01-12 08:49] LABS: Cholesterol 223 mg/dL (140-199); HDL Cholesterol 38 mg/dL (40-60); LDL Cholesterol Calculated 140 mg/dL (<100); Triglycerides 225 mg/dL (35-150)
== END ==
LOC: LAB 06:37
PROVIDERS: Family Provider Family Medicine; PCP Internal Medicine; Referring Provider Internal Medicine; Visit Provider Internal Medicine
DX: E78.2 Mixed hyperlipidemia (principal)
CPT/HCPCS: 36415; 80061

== ENCOUNTER → 2024-01-25 14:42 | Outpatient (CLI) | payer MEDICARE, OTHER, SELFPAY ==
--- NOTE | 2024-02-10 13:34 | DIET.CONS ---
Dietary Consultation Note Admission Date: Assessment: 68 y M referred to dietitian for CKD4, E11.9 - Type 2 diabetes mellitus without complications, N19 - Unspecified kidney failure. Anmol reports goals of controlling BG and preventing further decline in kidneys. PMH of gout that is controlled and gastroparesis (30+ yrs ago) that is controlled with medication. Reports being dx with CKD in July and was told to reduce potassium containing foods. Has since reduced potatoes, bananas, and tomatoes. Also has reduced intake of liver, tongue, meat, and beans. F/u w/ nephro at [facility]. Pt wants his lab records, is not online, provided number for requesting medical records Diet recall: 1 c coffee djiboutian muffin w/ pb or 1-2 eggs or cereal, berries sandwich with vegetables and 1 sl cheese fish or beef stew (8 oz protein portion) snack: cheese water Physical activity- arthritis- cannot complete activity like he used to Labs: K+ WNL, GFR 23, A1c 6.9, uric acid 10.4, phos 4.5, vit D 24.2, TG 225, chol 223, HDL 38, LDL 140 Pt has started statin. Taking calcium that has vit D in it, but unsure how much/how much he should be taking, fish oil, domperidone, and BP med Ht: 5 ft 10.5 in Wt: 184 lb 8 oz BMI: 26.1 Weight history: Mid-December reports 81.82 kg at w/o shoes on (9% weight loss in 1 yr 1 m, non-significant) 83.688 kg on 01/17/24 81.817 kg on 11/15/23 80.966 kg on 07/08/23 (10% loss in 7 months) 90.265 kg on 12/10/22 Nutrition Diagnosis: Altered nutrition related lab values (phos, GFR, A1c) r/t kidney dysfunction and endocrine dysfunction aeb phos 4.5, GFR 23, A1c 6.9 on 12/29/23 Food and nutrition related knowledge deficit r/t no previous formal educ aeb pt assessment Interventions: 1. Low phosphorus (<900 mg) -educ on phos content in foods -assessed phos in current diet recall - reduction in cheese to 1 or < serving/d -provided handout 2. CKD w/ DM plate method -Educ on protein needs, balanced meals, plant-based proteins, reviewed labs, label reading, saturated fats -Provided handout (AND CKD) -[place] of legumes 1/2 -1 c/d w/ reduced meat/fish portion or in place EER: 55-60 g protein (.6-.8 g/kg per CKD4 w/ DM) Monitoring/Evaluations: diet recall, goals, labs, weight, f/u 3 m Electronically Signed by: Regla Dunbar 02/10/24 13:34 Clinical Dietitian [address] [id number]
== END ==
PROVIDERS: Family Provider Family Medicine; PCP Internal Medicine; Referring Provider Internal Medicine
DX: E11.22 Type 2 diabetes mellitus with diabetic chronic kidney disease (principal); N18.4 Chronic kidney disease, stage 4 (severe); Z71.3 Dietary counseling and surveillance; Z68.26 Body mass index [BMI] 26.0-26.9, adult
CPT/HCPCS: 97802

== ENCOUNTER → 2024-02-08 11:13 | Outpatient (CLI) | payer MEDICARE, OTHER, SELFPAY | PROVIDERS: Family Provider Family Medicine; PCP Internal Medicine; Referring Provider Internal Medicine; Visit Provider Internal Medicine | DX: N18.4 Chronic kidney disease, stage 4 (severe) (principal) | CPT/HCPCS: 36415; 80323 ==

== ENCOUNTER → 2024-04-26 07:03 | Outpatient (CLI) | payer MEDICARE, OTHER, SELFPAY ==
[2024-04-26 08:32] LABS: Add Manual Diff / Slide Review NO; Basophils Absolute Auto 0 /uL (0-100); Basophils Percent Auto 0.6 % (0-2); Eosinophils Absolute Auto 100 /uL (0-450); Eosinophils Percent Auto 2.3 % (2-4); Hematocrit 32.8 % (41-53); Hemoglobin 11.6 g/dL (13.5-17.5); Lymphocytes Absolute Auto 2000 /uL (1100-4500); Lymphocytes Percent Auto 31.5 % (25-40); Mean Corpuscular HGB Conc 35.2 % (30-36); Mean Corpuscular Hemoglobin 29.4 PG (26-34); Mean Corpuscular Volume 83.3 fL (80-100); Monocytes Absolute Auto 600 /uL (0-900); Monocytes Percent Auto 9.3 % (3-14); Neutrophils Absolute Auto 3600 /uL (1500-7000); Neutrophils Percent Auto 56.3 % (50-75); Platelet Count 155 X10^3/uL (150-400); Red Blood Cell Count 3.94 X10^6/uL (4.5-5.9); Red Cell Distribution Width 13.5 % (11.6-14.8); White Blood Cell Count 6.3 X10^3/uL (4.5-11.0)
[2024-04-26 08:53] LABS: HEMOLYSIS < 15 (0-50); Iron 78 ug/dL (49-181)
[2024-04-26 08:58] LABS: Albumin 3.9 g/dL (3.5-5.0); Blood Urea Nitrogen 84 mg/dL (9-20); Calcium 9.6 mg/dL (8.4-10.2); Carbon Dioxide 27 mmol/L (22-32); Chloride 96 mmol/L (98-107); Estimated Glomerular Filt Rate 21 mL/min (>60); Glucose 183 mg/dL (80-110); HEMOLYSIS < 15 (0-50); Phosphorous 4.5 mg/dL (2.3-3.7); Sodium 133 mmol/L (137-145)
[2024-04-26 09:07] LABS: Percent Iron Saturation 28 % (20-50); Total Iron Binding Capacity 278 ug/dL (261-462); Transferrin 204 mg/dL (206-381)
[2024-04-26 09:33] LABS: Ferritin 181 ng/mL (18-464)
[2024-04-27 09:36] LABS: Parathyroid Hormone Int 84 pg/mL (15-65)
[2024-05-10 10:10] LABS: 25 hydroxy Vitamin D 2 <1.0 ng/mL (.); 25 hydroxy Vitamin D3 28 ng/mL (.)
== END ==
PROVIDERS: Family Provider Family Medicine; PCP Internal Medicine; Referring Provider Internal Medicine; Visit Provider Internal Medicine
DX: N18.4 Chronic kidney disease, stage 4 (severe) (principal); D63.1 Anemia in chronic kidney disease; N28.9 Disorder of kidney and ureter, unspecified; E55.9 Vitamin D deficiency, unspecified
CPT/HCPCS: 36415; 80069; 82306; 82728; 83540; 83550; 83970; 85025

== ENCOUNTER → 2024-07-12 06:48 | Outpatient (CLI) | payer MEDICARE, OTHER, SELFPAY ==
[2024-07-12 08:02] LABS: Add Manual Diff / Slide Review NO; Basophils Absolute Auto 0 /uL (0-100); Basophils Percent Auto 0.4 % (0-2); Eosinophils Absolute Auto 100 /uL (0-450); Eosinophils Percent Auto 1.8 % (2-4); Hematocrit 36.4 % (41-53); Hemoglobin 12.5 g/dL (13.5-17.5); Lymphocytes Absolute Auto 1600 /uL (1100-4500); Lymphocytes Percent Auto 24.7 % (25-40); Mean Corpuscular HGB Conc 34.3 % (30-36); Mean Corpuscular Volume 84.4 fL (80-100); Monocytes Absolute Auto 600 /uL (0-900); Monocytes Percent Auto 8.8 % (3-14); Neutrophils Absolute Auto 4200 /uL (1500-7000); Neutrophils Percent Auto 64.3 % (50-75); Platelet Count 150 X10^3/uL (150-400); Red Blood Cell Count 4.32 X10^6/uL (4.5-5.9); Red Cell Distribution Width 13.4 % (11.6-14.8); White Blood Cell Count 6.5 X10^3/uL (4.5-11.0)
[2024-07-12 08:18] LABS: HEMOLYSIS < 15 (0-50); Iron 46 ug/dL (49-181)
[2024-07-12 08:21] LABS: Albumin 4.5 g/dL (3.5-5.0); BUN Creatinine Ratio 23.7 (6-22); Blood Urea Nitrogen 80 mg/dL (9-20); Calcium 9.3 mg/dL (8.4-10.2); Carbon Dioxide 25 mmol/L (22-32); Chloride 98 mmol/L (98-107); Estimated Glomerular Filt Rate 19 mL/min (>60); Glucose 166 mg/dL (80-110); HEMOLYSIS < 15 (0-50); Phosphorous 4.8 mg/dL (2.3-3.7); Potassium 4.4 mmol/L (3.4-5.1); Sodium 136 mmol/L (137-145)
[2024-07-12 08:28] LABS: Percent Iron Saturation 17 % (20-50); Total Iron Binding Capacity 265 ug/dL (261-462); Transferrin 235 mg/dL (206-381)
[2024-07-12 09:10] LABS: Ferritin 155 ng/mL (18-464)
[2024-07-12 10:26] LABS: Vitamin D 25 Hydroxy (D3) 31.3 ng/mL (30.0-100.0)
[2024-07-12 18:16] LABS: Alanine Aminotransferase 27 IU/L (<50); Albumin 4.5 g/dL (3.5-5.0); Albumin Globulin Ratio 1.6 (1.0-2.8); Alkaline Phosphatase 78 U/L (38-126); Aspartate Aminotransferase 29 IU/L (17-59); BUN Creatinine Ratio 24.2 (6-22); Bilirubin Total 0.6 mg/dL (0.2-1.3); Blood Urea Nitrogen 82 mg/dL (9-20); Calcium 9.5 mg/dL (8.4-10.2); Carbon Dioxide 23 mmol/L (22-32); Chloride 99 mmol/L (98-107); Cholesterol 145 mg/dL (140-199); Estimated Glomerular Filt Rate 19 mL/min (>60); Globulin 2.8 g/dL (1.7-4.1); Glucose 166 mg/dL (80-110); HDL Cholesterol 38 mg/dL (40-60); HEMOLYSIS < 15 (0-50); LDL Cholesterol Calculated 78 mg/dL (<100); Potassium 4.5 mmol/L (3.4-5.1); Sodium 136 mmol/L (137-145); Total Protein 7.3 g/dL (6.3-8.2); Triglycerides 146 mg/dL (35-150); Uric Acid 11.5 mg/dL (3.5-8.5)
[2024-07-12 18:19] LABS: Hemoglobin A1C% w Est Avg Glu 7.3 % (4.0-6.0)
[2024-07-13 19:38] LABS: Calcium 9.5 mg/dL (8.6-10.2); Parathyroid Hormone, Intact 106 pg/mL (15-65)
== END ==
PROVIDERS: Family Provider Family Medicine; PCP Internal Medicine; Referring Provider Internal Medicine; Visit Provider Internal Medicine
DX: E11.9 Type 2 diabetes mellitus without complications (principal); N18.4 Chronic kidney disease, stage 4 (severe); D63.1 Anemia in chronic kidney disease; E83.9 Disorder of mineral metabolism, unspecified; N18.32 Chronic kidney disease, stage 3b; E78.2 Mixed hyperlipidemia; M10.9 Gout, unspecified; N28.9 Disorder of kidney and ureter, unspecified; I12.9 Hypertensive chronic kidney disease with stage 1 through stage 4 chronic kidney disease, or unspecified chronic kidney disease
CPT/HCPCS: 36415; 80053; 80061; 80069; 82306; 82310; 82728; 83036; 83540; 83550; 83970; 84550; 85025